=== PATIENT | male | born 1995 | race Caucasian/White ===

== ENCOUNTER 2018-03-30 07:22 | Observation (INO) ==
[2018-03-30] MEDS ORDERED: SODIUM CHLORIDE 0.9% 1000ML 1,000 ML IV ONE (07:37)
[2018-03-30] MEDS ORDERED: ONDANSETRON INJ 2 MG/ML 2 ML VIAL IV STA (07:37)
--- NOTE | 2018-03-30 07:41 | Emergency Department Note ---
History of Present Illness General Chief complaint: Abdominal Pain Stated complaint: MIDDLE RT LWR ABDOMINAL PAIN,NAUSEA Time Seen by Provider: 03/30/18 07:28 History of Present Illness Maximum Pain Intensity: 4 22-year-old male who presents to emergency department with complaint of central and upper abdominal pain since last evening around 8 PM. The patient reports that he recently flew back from [place]. The patient reports that his initial discomfort was in the center of the abdomen radiating to the epigastric region. The patient reports that he did not have a good appetite yesterday. The patient reports that he awakened practically every hour overnight. He took some Advil at 3 AM which did not alleviate his symptoms. The patient reports mild nausea without vomiting. He denies any pain radiating into the chest, neck , back or lower abdomen. The pain is not worsened with ambulation, movement or position. The patient denies any recent constipation or diarrhea. He also denies fevers, chills or other sick contacts. The patient denies any recent significant alcohol, NSAIDs or caffeine use. He currently rates his discomfort a 4 out of 10. Home Medications Home Medications Medication Instructions Recorded Confirmed Type No Known Home Medications 03/30/18 03/30/18 History Allergies Allergy/AdvReac Type Severity Reaction Status Date / Time No Known Allergies Allergy Unverified 03/30/18 07:54 Past Med/Surg History Social History Current Living Situation: Alone Other Information That Helps Us Care for You: No Feels Safe at Home: Yes Safety Concerns: Feels Safe At This Time Smoking Status: Former smoker Do You Dip or Chew Tobacco: No Hx Alcohol Use: Yes Alcohol Intake Frequency: other Hx Substance Use: No Beliefs That Will Affect Care: None Preferred Language: Wolof Communication Ability: Effective Fire Tower Keeper Required: No Review of Systems HEENT: Denies dizziness, visual problems, hearing loss, tinnitus. Denies difficulty swallowing or oral lesions. PULMONARY: Denies cough, shortness of breath, sputum production or hemoptysis. CARDIOVASCULAR: Denies chest pain, palpitations, dyspnea on exertion, orthopnea or peripheral edema. GASTROINTESTINAL: See HPI. GENITOURINARY: Denies dysuria, frequency, urgency or nocturia. NEUROLOGIC: Denies history of epilepsy, CVA, TIA or chronic headaches. MUSCULOSKELETAL: Denies history of joint tenderness/swelling. SKIN: Denies rashes or lesions. PSYCHIATRIC: Denies history of depression or mental illness. ENDOCRINE: Denies history of diabetes or thyroid disorders. Physical Exam Vital Signs Vital Signs - 24 hr 03/30/18 07:27 03/30/18 08:25 03/30/18 10:17 Temperature 36.8 C Temperature Source Oral Sepsis Recent Fever Within 48 Hours No Sepsis New/Unexplained Change in Mental Status No Sepsis Action Taken by Nursing No Action Required Pulse Rate 99 H Pulse Rate [Apical] Pulse Rate [Left Brachial] 76 83 Pulse Rhythm [Apical] Pulse Rhythm [Left Brachial] Pulse Strength [Left Brachial] Respiratory Rate 20 18 18 Respiratory Effort / Characteristics Non-Labored Spontaneous Non-Labored Spontaneous Respiratory Depth Normal Normal Respiratory Pattern Regular Regular Blood Pressure 140/78 Blood Pressure [Left Arm] 136/60 124/67 Blood Pressure Mean 98 Blood Pressure Mean [Left Arm] 85 86 Blood Pressure Position [Left Arm] Lying Lying Pulse Oximetry 100 100 100 Oxygen Delivery Method Room Air Room Air Room Air Oxygen Flow Rate 03/30/18 11:16 03/30/18 13:05 03/30/18 14:02 Temperature 36.8 C Temperature Source Oral Sepsis Recent Fever Within 48 Hours Sepsis New/Unexplained Change in Mental Status Sepsis Action Taken by Nursing Pulse Rate Pulse Rate [Apical] Pulse Rate [Left Brachial] 84 82 93 H Pulse Rhythm [Apical] Pulse Rhythm [Left Brachial] Regular Pulse Strength [Left Brachial] Normal Respiratory Rate 18 18 18 Respiratory Effort / Characteristics Non-Labored Spontaneous Non-Labored Spontaneous Non-Labored Respiratory Depth Normal Normal Normal Respiratory Pattern Regular Regular Blood Pressure Blood Pressure [Left Arm] 138/60 121/74 145/75 H Blood Pressure Mean Blood Pressure Mean [Left Arm] 86 89 98 Blood Pressure Position [Left Arm] Lying Lying Sitting Pulse Oximetry 99 99 98 Oxygen Delivery Method Room Air Room Air Room Air Oxygen Flow Rate 03/30/18 16:16 Temperature Temperature Source Sepsis Recent Fever Within 48 Hours Sepsis New/Unexplained Change in Mental Status Sepsis Action Taken by Nursing Pulse Rate Pulse Rate [Apical] 68 Pulse Rate [Left Brachial] Pulse Rhythm [Apical] Regular Pulse Rhythm [Left Brachial] Pulse Strength [Left Brachial] Respiratory Rate 12 Respiratory Effort / Characteristics Non-Labored Spontaneous Respiratory Depth Normal Respiratory Pattern Regular Blood Pressure Blood Pressure [Left Arm] 113/51 L Blood Pressure Mean Blood Pressure Mean [Left Arm] 71 Blood Pressure Position [Left Arm] Lying Pulse Oximetry 99 Oxygen Delivery Method Oxymask Oxygen Flow Rate 10 CONSTITUTIONAL: Healthy and well nourished. Alert and oriented X 3. Patient does not appear in any acute distress. HEENT: Normocephalic, atraumatic. Pupils equal, round and reactive. No scleral icterus or conjunctival injection. No rhinorrhea. Examination of the oropharynx does not show any posterior pharyngeal erythema or tonsillar hypertrophy/exudates. NECK: Full active range of motion without discomfort. LYMPHATICS: No adenopathy noted. RESPIRATORY: Clear to auscultation bilaterally with no wheezing, crackles, rhonchi or stridor. CARDIOVASCULAR: Regular rate and rhythm with no murmurs, rubs or gallops. GASTROINTESTINAL: Bowel sounds present in all quadrants. Examination shows mild epigastric tenderness to palpation. The patient has no lower abdominal tenderness to palpation. Negative Rovsing sign. Negative McBurney's point tenderness. Negative CVA tenderness. No abdominal rigidity, guarding or rebound. MUSCULOSKELETAL: Full range of motion of all joints without discomfort. INTEGUMENTARY: No rash or other significant dermatologic conditions noted. HEMATOLOGIC: No ecchymosis or petechia. NEUROLOGIC: Cranial nerves II-XII grossly intact. No focal neurologic deficits noted. PSYCHIATRIC: Positive affect. Course Patient history and physical exam were performed. Nurse's notes were reviewed. Vital signs were reviewed and were normal. IV access was established, and labs were drawn. The patient was hydrated with a liter of normal saline, and administered Zofran for nausea. He refused any analgesics. Labs were reviewed to show no significant abnormalities. Urinalysis was not consistent with infection. It is noted on initial evaluation that the patient did not have any clinical findings or suspicion for acute appendicitis. The patient reported that he still had mild generalized central abdominal pain, and now mild right lower quadrant pain. At this point, I elected to get a CT of the abdomen and pelvis which showed an acute appendicitis. The case was discussed with Dr. Nelson, ED attending physician, who recommended surgical consultation. The case was then discussed with Kurtis Batres PA-C, with Dr. Austin Muñiz, general surgeon. Please see their dictations for further surgical management. Administered Medications Ioversol (Optiray 320 125ml) 119 ml IV ONCE PRN PRN Reason: Interaction Checking Stop: 04/03/18 11:11 Last Admin: 03/30/18 11:12 Dose: 119 ml Discontinued Medications Bupivacaine HCl (Marcaine 0.5% Mpf) Confirm Administered Dose 30 ml .ROUTE .STK- MED ONE Stop: 03/30/18 14:58 Last Admin: 03/30/18 15:44 Dose: 30 ml Sodium Chloride (Nss 1000ml) 1,000 mls @ 999 mls/hr IV .Q1H1M ONE Stop: 03/30/18 08:37 Last Infusion: 03/30/18 08:56 Dose: 0 mls/hr Admin: 03/30/18 08:04 Dose: 999 mls/hr Ampicillin Sodium/Sulbactam Sodium 3,000 mg/ Sodium Chloride 108 mls @ 200 mls/ hr IV ONE ONE Stop: 03/30/18 13:47 Last Infusion: 03/30/18 14:20 Dose: 0 mls/hr Admin: 03/30/18 13:47 Dose: 200 mls/hr Ondansetron HCl (Zofran) 4 mg IV NOW STA Stop: 03/30/18 07:38 Last Admin: 03/30/18 08:04 Dose: 4 mg Medical Decision Making Medical Records Attestation: I reviewed the patient's medical records. Home Medications Current Medication List: was personally reviewed by me Laboratory Data Attestation: I reviewed the patient's lab results. Result diagrams: 03/30/18 07:45 03/30/18 07:45 Lab Results 03/30/18 03/30/18 03/30/18 Range/Units 07:40 07:45 07:45 WBC 9.37 (4.8-10.8) K/uL RBC 5.50 (4.7-6.1) M/uL Hgb 16.5 (14.0-18.0) g/dL Hct 47.2 (42-52) % MCV 85.8 (80-100) fL MCH 30.0 (25-34) pg MCHC 35.0 (32-36) g/dL RDW Std Deviation 38.6 (36.4-46.3) fL RDW Coeff of Trevor 12.3 (11.5-14.5) % Plt Count 241 (130-400) K/uL MPV 9.5 (7.4-10.4) fL Immature Gran % (Auto) 0.2 % Neut % (Auto) 70.0 % Lymph % (Auto) 19.7 % Collin % (Auto) 8.8 % Eos % (Auto) 1.1 % Baso % (Auto) 0.2 % Immature Gran # (Auto) 0.02 (0.00-0.02) K/uL Neut # (Auto) 6.56 H (1.4-6.5) K/uL Lymph # (Auto) 1.85 (1.2-3.4) K/uL Collin # (Auto) 0.82 H (0.11-0.59) K/uL Eos # (Auto) 0.10 (0-0.5) K/uL Baso # (Auto) 0.02 (0-0.2) K/uL Sodium 136 (136-145) mmol/L Potassium 3.2 L (3.5-5.1) mmol/L Chloride 102 (98-107) mmol/L Carbon Dioxide 28 (21-32) mmol/L Anion Gap 6.0 (3-11) BUN 15 (7-18) mg/dl Creatinine 1.00 (0.6-1.4) mg/dl Est Cr Clr Drug Dosing 117.7 ml/min Est GFR ( Amer) 125.0 Est GFR (Non-Af Amer) 107.9 BUN/Creatinine Ratio 15.1 (10-20) Glucose 85 (70-99) mg/dl Calcium 9.0 (8.5-10.1) mg/dl Total Bilirubin 1.3 H (0.2-1) mg/dl AST 20 (15-37) U/L ALT 19 (12-78) U/L Alkaline Phosphatase 93 (45-117) U/L Total Protein 9.2 H (6.4-8.2) gm/dl Albumin 4.9 (3.4-5.0) gm/dl Globulin 4.3 H (2.5-4.0) gm/dl Albumin/Globulin Ratio 1.1 (0.9-2) Lipase 107 (73-393) U/L Urine Color Dark Yellow Urine Appearance Clear (Clear) Urine pH 6.0 (4.5-7.5) Ur Specific [place] 1.036 H (1.000-1.030) Urine Protein 1+ H (Negative) Urine Glucose (UA) Negative (Negative) Urine Ketones Trace H (Negative) Urine Blood Negative (Negative) Urine Nitrite Negative (Negative) Urine Bilirubin Negative (Negative) Urine Urobilinogen Negative (Negative) Ur Leukocyte Esterase Negative (Negative) Urine WBC (Auto) 1-5 (0-5) /hpf Urine RBC (Auto) 0-4 (0-4) /hpf U Hyaline Cast (Auto) 1-5 (0-5) /lpf U Epithel Cells (Auto) 5-10 H (0-5) /lpf Urine Bacteria (Auto) Negative (Negative) Imaging Data Attestation: I personally reviewed and interpreted this imaging study as follows : My Impression: CT of the abdomen and pelvis with IV contrast shows evidence for an acute appendicitis. Radiologist report was reviewed. Radiologist's Impression: ABDOMEN AND PELVIS CT WITH IV CONTRAST CT DOSE: 348.77 mGycm HISTORY: Acute right lower quadrant abdominal pain RLQ abd pain TECHNIQUE: Multiaxial CT images of the abdomen and pelvis were performed following the use of intravenous contrast. A dose lowering technique was utilized adhering to the principles of ALARA. COMPARISON STUDY: None. FINDINGS: Lung bases are clear. No pneumatosis or pneumoperitoneum. The imaged inferior cardiac chambers appear unremarkable. Contracted gallbladder. Liver, spleen, pancreas and adrenal glands are unremarkable. Kidneys, ureters and urinary bladder are within normal limits. Mild to moderate volume of free fluid within the dependent pelvis. Aorta and IVC are unremarkable. No adenopathy. No bowel obstruction. Terminal ileum is unremarkable. Circumferential wall thickening of the appendix is noted measuring up to 3 mm with associated mucosal hyperemia. Appendix is fluid- filled and dilated measuring up to 11 mm transversely. Mild to moderate periappendiceal inflammatory stranding is noted without drainable fluid collection or evidence of perforation. No obstructing appendicolith identified. Soft tissues are within normal limits. Bones appear to be intact. Transitional lumbosacral anatomy with pseudoarticulation of the elongated L5 transverse processes with the sacral ala. IMPRESSION: 1. Findings compatible with acute uncomplicated appendicitis. No drainable fluid collection or evidence of perforation. 2. No bowel obstruction. 3. Mild to moderate reactive free pelvic fluid. 4. Transitional lumbosacral anatomy. Blood Pressure Blood Pressure Findings: Normal blood pressure MDM Narrative CT scan shows evidence for acute appendicitis. Workup at this point is not suggestive of bowel obstruction, pancreatitis, hepatitis, cholecystitis or UTI. I also do not suspect testicular etiologies. The patient has not had any recent GI symptoms. Impression & Plan Acute appendicitis Discharge Plan Visit Data Chief Complaint: Abdominal Pain Stated Complaint: MIDDLE RT LWR ABDOMINAL PAIN,NAUSEA ED Provider: Sb Nelson ED Midlevel Provider: Adolph Fitzpatrick Discharge Problem: Acute appendicitis Patient Disposition: Admitted As Inpatient Discharge Instructions Interventions: ED Discharge Assessment Last Done: 03/30/18 13:48 Forms Stand Alone Forms: [facility], Important Visit Information Prescriptions Prescriptions: No Action No Known Home Medications RF: 0 Referrals Referrals: PCP,NO [Primary Care Provider] -
[2018-03-30 07:58] LABS: Basophils # (auto) 0.02 K/uL (0-0.2); Basophils % (auto) 0.2 %; Eosinophils % (auto) 1.1 %; Hematocrit (blood only) 47.2 % (42-52); Hemoglobin 16.5 g/dL (14.0-18.0); Immature Granulocytes # (auto) 0.02 K/uL (0.00-0.02); Immature Granulocytes % (auto) 0.2 %; Lymphocytes # (auto) 1.85 K/uL (1.2-3.4); Lymphocytes % (auto) 19.7 %; Mean Corpuscular Volume 85.8 fL (80-100); Mean Platelet Volume 9.5 fL (7.4-10.4); Monocytes # (auto) 0.82 K/uL (0.11-0.59); Monocytes % (auto) 8.8 %; Neutrophils # (auto) 6.56 K/uL (1.4-6.5); Platelet Count 241 K/uL (130-400); RDW Coefficient of Variation 12.3 % (11.5-14.5); RDW Standard Deviation 38.6 fL (36.4-46.3); White Blood Count 9.37 K/uL (4.8-10.8)
[2018-03-30 08:14] LABS: Albumin Level 4.9 gm/dl (3.4-5.0); BUN Creatinine Ratio 15.1 (10-20); Creatinine Clr Calc Pharmacy 117.7 ml/min; Est GFR (Non-African American) 107.9; Potassium 3.2 mmol/L (3.5-5.1)
[2018-03-30 08:17] LABS: Albumin Globulin Ratio 1.1 (0.9-2); Bilirubin,Total 1.3 mg/dl (0.2-1); Globulin 4.3 gm/dl (2.5-4.0); Total Protein 9.2 gm/dl (6.4-8.2)
[2018-03-30 08:21] LABS: Appearance Urine Clear (Clear); Bacteria Urine Automated Negative (Negative); Bilirubin Urine Negative (Negative); Color Urine Dark Yellow; Glucose Urine UA Negative (Negative); Ketones Urine Trace (Negative); Leukocyte Esterase Urine Negative (Negative); Nitrite Urine Negative (Negative); Protein Urine 1+ (Negative); Specific Gravity Urine 1.036 (1.000-1.030); Urobilinogen Urine Negative (Negative)
[2018-03-30] MEDS ORDERED: OPTIRAY 320 125ml IV PRN (11:12)
--- NOTE | 2018-03-30 11:20 | CT Scan Report ---
ABDOMEN AND PELVIS CT WITH IV CONTRAST CT DOSE: 348.77 mGycm HISTORY: Acute right lower quadrant abdominal pain RLQ abd pain TECHNIQUE: Multiaxial CT images of the abdomen and pelvis were performed following the use of intrave nous contrast. A dose lowering technique was utilized adhering to the principles of ALARA. COMPARISON STUDY: None. FINDINGS: Lung bases are clear. No pneumatosis or pneumoperitoneum. The imaged inferior cardiac chambers appear unremarkable. Contracted gallbladder. Liver, spleen, pancreas and adrenal glands are unremarkable. Kidneys, ureters and urinary bladder are within normal limits. Mild to moderate volume of free fluid within the depen dent pelvis. Aorta and IVC are unremarkable. No adenopathy. No bowel obstruction. Terminal ileum is u nremarkable. Circumferential wall thickening of the appendix is noted measuring up to 3 mm with assoc iated mucosal hyperemia. Appendix is fluid-filled and dilated measuring up to 11 mm transversely. Mil d to moderate periappendiceal inflammatory stranding is noted without drainable fluid collection or e vidence of perforation. No obstructing appendicolith identified. Soft tissues are within normal limits. Bones appear to be intact. Transitional lumbosacral anatomy wi th pseudoarticulation of the elongated L5 transverse processes with the sacral ala. IMPRESSION: 1. Findings compatible with acute uncomplicated appendicitis. No drainable fluid collection or eviden ce of perforation. 2. No bowel obstruction. 3. Mild to moderate reactive free pelvic fluid. 4. Transitional lumbosacral anatomy. Electronically signed by: Noah Mckenzie M.D. 03/30/2018 11:18 AM
--- NOTE | 2018-03-30 13:07 | History & Physical Report ---
Date of Service March 30, 2018 Assessment & Plan (1) Acute appendicitis: Laparoscopic appendectomy this afternoon by Dr. Muñiz. Procedure and recovery were discussed with the patient. 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 Nausea, no vomiting. No fevers or chills. No previous surgery. Allergies Allergy/AdvReac Type Severity Reaction Status Date / Time No Known Allergies Allergy Unverified 03/30/18 07:54 Home Medications Home Medications Medication Instructions Recorded Confirmed Type No Known Home Medications 03/30/18 03/30/18 History Past Med/Surg History Social History Current Living Situation: Alone Other Information That Helps Us Care for You: No Feels Safe at Home: Yes Safety Concerns: Feels Safe At This Time Smoking Status: Former smoker Do You Dip or Chew Tobacco: No Second Hand Exposure: No Tobacco Cessation Education Requested by Patient: No Hx Alcohol Use: Yes Alcohol Intake Frequency: other Hx Substance Use: No Beliefs That Will Affect Care: None Preferred Language: Kyrgyz Communication Ability: Effective Secondary English Teacher Required: No Review of Systems Constitutional: no fever and no chills Respiratory: no cough Gastrointestinal: no nausea and no vomiting Physical Exam 2 Vital Signs (Past 24 Hours): Last Vital Signs Temp 36.8 C 03/30/18 07:27 Pulse 84 03/30/18 11:16 Resp 18 03/30/18 11:16 BP 138/60 03/30/18 11:16 Pulse Ox 99 03/30/18 11:16 Constitutional: WD/WN, vitals as above no acute distress Respiratory: normal respiratory effort, lungs clear to auscultation Cardiovascular: RRR, no murmur, no edema Gastrointestinal (Abdomen): Inspection/Auscultation: abdomen normal to inspection; abdomen not distended Percussion/Palpation: + abdomen tender ( mild RLQ) and abdomen soft Skin: no rashes, warm and dry Results & Data Diagnostic Findings ABDOMEN AND PELVIS CT WITH IV CONTRAST CT DOSE: 348.77 mGycm HISTORY: Acute right lower quadrant abdominal pain RLQ abd pain TECHNIQUE: Multiaxial CT images of the abdomen and pelvis were performed following the use of intravenous contrast. A dose lowering technique was utilized adhering to the principles of ALARA. COMPARISON STUDY: None. FINDINGS: Lung bases are clear. No pneumatosis or pneumoperitoneum. The imaged inferior cardiac chambers appear unremarkable. Contracted gallbladder. Liver, spleen, pancreas and adrenal glands are unremarkable. Kidneys, ureters and urinary bladder are within normal limits. Mild to moderate volume of free fluid within the dependent pelvis. Aorta and IVC are unremarkable. No adenopathy. No bowel obstruction. Terminal ileum is unremarkable. Circumferential wall thickening of the appendix is noted measuring up to 3 mm with associated mucosal hyperemia. Appendix is fluid- filled and dilated measuring up to 11 mm transversely. Mild to moderate periappendiceal inflammatory stranding is noted without drainable fluid collection or evidence of perforation. No obstructing appendicolith identified. Soft tissues are within normal limits. Bones appear to be intact. Transitional lumbosacral anatomy with pseudoarticulation of the elongated L5 transverse processes with the sacral ala. IMPRESSION: 1. Findings compatible with acute uncomplicated appendicitis. No drainable fluid collection or evidence of perforation. 2. No bowel obstruction. 3. Mild to moderate reactive free pelvic fluid. 4. Transitional lumbosacral anatomy. Electronically signed by: Noah Mckenzie M.D. 03/30/2018 11:18 AM _ (1) Acute appendicitis Acute appendicitis type: Appendicitis abscess presence: Appendicitis gangrene presence: Appendicitis perforation presence:
[2018-03-30] MEDS ORDERED: AMPICILLIN/SULBACTAM SOD 3,000 MG in 0.9 % SODIUM CHLORIDE 100 ML IV ONE (13:15)
[2018-03-30] MEDS ORDERED: BUPIVACAINE 0.5 % 5 MG/1 ML MPF 30ML VIAL ONE (14:57)
--- NOTE | 2018-03-30 15:00 | Anesthesiology Consultation ---
Date of Service March 30, 2018 Acute appendicitis Otherwise healthy Assessment & Plan (1) Encounter for pre-operative examination: Chart Review Chart Review: Acceptable Risk for Surgery and Patient NOT seen in Pre Admission Testing Consults Requested none ASA [id number] Proposed Anesthesia Anesthesia Type: General Risk / Benefits Reviewed With: PT / POA / Parent / Guardian, Accepts Plan and Informed Consent Obtained NPO Date Last Intake of Fluids: 03/30/18 Time Last Intake of Fluids: 07:00 Date Last Intake of Solids: 03/30/18 Time Last Intake of Solids: 06:00 History Surgery Operation Date: 03/30/18 08:20 Proposed Procedures p Laparoscopic Appendectomy - Austin Muñiz MD, FACS Height/Weight Height: 5 ft 10 in Weight: 70.6 kg Allergies Allergy/AdvReac Type Severity Reaction Status Date / Time No Known Allergies Allergy Unverified 03/30/18 07:54 Medications Home Medications Medication Instructions Recorded Confirmed Last Taken No Known Home Medications 03/30/18 03/30/18 Unknown Active Medications Generic Name Dose Route Start Last Admin Trade Name Freq PRN Reason Stop Dose Admin Ioversol 119 ml 03/30/18 11:12 03/30/18 11:12 Optiray 320 125ml IV 04/03/18 11:11 119 ml ONCE PRN Administration Interaction Checking Social History Smoking Status: Former smoker Do You Dip or Chew Tobacco: No Hx Alcohol Use: Yes alcohol intake frequency: other Alcohol Intake Frequency Comment: weekends Hx Substance Use: No Physical Exam Vital Signs Last Vital Signs Temp 36.8 C 03/30/18 14:02 Pulse 93 H 03/30/18 14:02 Resp 18 03/30/18 14:02 BP 145/75 H 03/30/18 14:02 Pulse Ox 98 03/30/18 14:02 ENMT Mouth: no dentition abnormality Thyromental Distance: > or= 3.5 Finger Breadths Mallampati Class: II Neck normal visual inspection; neck extension not limited Respiratory normal respiratory effort Auscultation: lungs clear to auscultation bilaterally Cardiovascular Rate/Rhythm: regular rate and regular rhythm Musculoskeletal Spine: normal cervical ROM Neurologic moves all extremities Psychiatric Orientation: alert and oriented x 3 Testing Laboratory Results 03/30/18 07:45 03/30/18 07:45 Urine Color Dark Yellow 03/30/18 07:40 Urine Appearance Clear (Clear) 03/30/18 07:40 Urine pH 6.0 (4.5-7.5) 03/30/18 07:40 Ur Specific [place] 1.036 (1.000-1.030) H 03/30/18 07:40 Urine Protein 1+ (Negative) H 03/30/18 07:40 Urine Glucose (UA) Negative (Negative) 03/30/18 07:40 Urine Ketones Trace (Negative) H 03/30/18 07:40 Urine Nitrite Negative (Negative) 03/30/18 07:40 Ur Leukocyte Esterase Negative (Negative) 03/30/18 07:40 Urine WBC (Auto) 1-5 /hpf (0-5) 03/30/18 07:40 Urine RBC (Auto) 0-4 /hpf (0-4) 03/30/18 07:40 U Hyaline Cast (Auto) 1-5 /lpf (0-5) 03/30/18 07:40 U Epithel Cells (Auto) 5-10 /lpf (0-5) H 03/30/18 07:40 Urine Bacteria (Auto) Negative (Negative) 03/30/18 07:40
[2018-03-30] MEDS ORDERED: ePHEDrine sulfate 50 MG/ML AMP IV PRN (15:02)
[2018-03-30] MEDS ORDERED: ATROPINE SULFATE 0.1 MG/ML 10ML SYR IV PRN (15:02)
[2018-03-30] MEDS ORDERED: fentaNYL citrate 100 MCG/2 ML VIAL IV PRN (15:02)
[2018-03-30] MEDS ORDERED: ONDANSETRON INJ 2 MG/ML 2 ML VIAL IV PRN ×2 (15:02→17:06)
[2018-03-30] MEDS ORDERED: KETOROLAC 30 MG/ML VIAL ONE (15:04)
[2018-03-30] MEDS ORDERED: ONDANSETRON INJ 2 MG/ML 2 ML VIAL ONE (15:04)
[2018-03-30] MEDS ORDERED: ePHEDrine sulfate 50 MG/ML SYR ONE (15:04)
[2018-03-30] MEDS ORDERED: PHENYLEPHRINE 100MCG/ML 5ML SYR ONE (15:04)
[2018-03-30] MEDS ORDERED: PROPOFOL IV EMULSION 10 MG/ML 20 ML VIAL IV ONE (15:04)
[2018-03-30] MEDS ORDERED: GLYCOPYRROLATE 0.2 MG/ML VIAL ONE (15:04)
[2018-03-30] MEDS ORDERED: NEOSTIGMINE METHYLSULFATE 5 MG/5 ML SYR ONE (15:04)
[2018-03-30] MEDS ORDERED: ROCURONIUM BROMIDE 10 MG/ML 5 ML VIAL ONE (15:04)
[2018-03-30] MEDS ORDERED: LIDOCAINE HCL 2% 2 ML VIAL/AMP(20MG/ML) INFIL ONE (15:04)
[2018-03-30] MEDS ORDERED: fentaNYL citrate 100 MCG/2 ML VIAL ONE ×2 (15:04→15:05)
[2018-03-30] MEDS ORDERED: LARYING-O-JET KIT (LTA) ONE (15:04)
[2018-03-30] MEDS ORDERED: DEXAMETHASONE SOD INJ 4 MG/ML VIAL ONE (15:04)
[2018-03-30] MEDS ORDERED: MIDAZOLAM HCL 1 MG/ML 2ML VIAL ONE (15:05)
--- NOTE | 2018-03-30 16:05 | Operative Report ---
Post Operative Report Pre & Post Diagnosis Operation Date: 03/30/18 08:20 Pre-Op Diagnosis: acute appendicitis Post-Op Diagnosis: acute appendicitis same Procedure Operation Date: 03/30/18 08:20 Actual Procedures p Laparoscopic Appendectomy(Not Applicable) - Austin Muñiz MD, FACS same Surgeon Austin Muñiz MD, FACS Agricultural Technician nurses Estimated Blood Loss 5 Findings Consistent with Post-Op Diagnosis Specimens appendix Description of Procedure laparoscopic appendectomy I attest to the content of the Intraoperative Record and any orders documented therein. Any exceptions are noted below.
--- NOTE | 2018-03-30 16:42 | Anesthesiology Progress Note ---
Date of Service March 30, 2018 Anesthesia Post Procedure Vital Signs Vital Signs: Temp Pulse Pulse Pulse Resp BP BP 03/30/18 16:35 88 14 129/60 03/30/18 16:25 89 16 115/58 L 03/30/18 16:16 68 12 113/51 L 03/30/18 14:02 36.8 C 93 H 18 145/75 H 03/30/18 13:05 82 18 121/74 03/30/18 11:16 84 18 138/60 03/30/18 10:17 83 18 124/67 03/30/18 08:25 76 18 136/60 03/30/18 07:27 36.8 C 99 H 20 140/78 Pulse Ox 03/30/18 16:35 100 03/30/18 16:25 100 03/30/18 16:16 99 03/30/18 14:02 98 03/30/18 13:05 99 03/30/18 11:16 99 03/30/18 10:17 100 03/30/18 08:25 100 03/30/18 07:27 100 Pain Intensity Right Abdomen: Pain Intensity: 4 Abdomen: Pain Intensity: 2 Notes Mental Status: alert / awake / arousable Patient Amnestic to Procedure: Yes Nausea / Vomiting: adequately controlled Pain: adequately controlled Airway Patency, RR, SpO2: stable & adequate BP & HR: stable & adequate Hydration State: stable & adequate Anesthetic Complications: no major complications apparent
[2018-03-30] MEDS ORDERED: MoRPHine SULFATE 2 MG/ML CARP IV PRN (17:06)
[2018-03-30] MEDS ORDERED: HYDROCODONE/ACETAMOPHEN 5/325MG TAB PO PRN ×2 (17:06)
[2018-03-30] MEDS ORDERED: IBUPROFEN 600 MG TAB PO PRN (17:06)
[2018-03-30] MEDS ORDERED: PROMETHAZINE HCL 12.5 MG in SODIUM CHLORIDE 0.9% 50 ML IV PRN (17:06)
[2018-03-30] MEDS ORDERED: MoRPHine SULFATE 4 MG/ML 1 ML CARP\\VIAL IV PRN (17:06)
[2018-03-30] MEDS: AMPICILLIN/SULBACTAM SOD 1,500 MG in 0.9 % SODIUM CHLORIDE 100 ML IV SCH (20:31)
[2018-03-30] MEDS: SODIUM CHLORIDE 0.9% 1000ML 1,000 ML IV SCH (20:31)
--- NOTE | 2018-03-30 20:35 | Operative Report ---
DATE OF OPERATION: 03/30/2018 NAME OF OPERATION: Laparoscopic appendectomy. PREOPERATIVE DIAGNOSIS: Acute appendicitis. POSTOPERATIVE DIAGNOSIS: Acute appendicitis. STAFF SURGEON: Austin Muñiz MD ANESTHESIA: General. DESCRIPTION OF PROCEDURE: The patient was brought in the Operating Room and placed on the Operating Room table in supine position. Pneumatic stockings and orogastric tube were placed. Incision was made just above the umbilicus, carrying dissection down, placing a Veress needle producing pneumoperitoneum, placing a 5 mm port under visualization using a 5 mm camera, a second 5 mm port was placed suprapubically and then a 12 mm port in the left lower quadrant. At this point, the cecum was reflected. The appendix was identified. The base of the appendix was dissected free and then the base transected using a brown load of Endo-LEODAN stapler. Two additional firings were performed to take the mesoappendix. The appendix was placed in an Endobag. The Endobag was removed through the left lower quadrant site. After appropriate irrigation and hemostasis, all ports were removed. The fascia in the left lower quadrant was closed using 0 Vicryl suture. The skin was reapproximated at that level using subcuticular 4-0 Monocryl and the other sites. The Dermabond was used at the umbilicus and suprapubic area and then Steri-Strips in the left lower quadrant. The patient was transferred to Recovery Room in a stable condition. I attest to the content of the Intraoperative Record and any orders documented therein. Any exception s are noted below.
[2018-03-31] MEDS: AMPICILLIN/SULBACTAM SOD 1,500 MG in 0.9 % SODIUM CHLORIDE 100 ML IV SCH ×2 (01:25→10:16)
--- NOTE | 2018-03-31 08:00 | XRay Report ---
TWO VIEW CHEST CLINICAL HISTORY: Right-sided chest wall pain. FINDINGS: PA and lateral chest radiographs are obtained. No prior studies are available for compariso n at the time of dictation. The cardiomediastinal silhouette is unremarkable. The lungs and pleural spaces are clear. There is no pneumothorax. The bony thorax appears intact. IMPRESSION: No active disease in the chest. Electronically signed by: Clemente Nelson M.D. 03/31/2018 7:59 AM
--- NOTE | 2018-03-31 09:04 | Discharge Summary ---
DATE OF DISCHARGE: 03/31/18 PRINCIPAL DIAGNOSIS: Acute appendicitis. HISTORY OF PRESENT ILLNESS: The patient is a 22-year-old male presenting to the Emergency Room with persistent abdominal pain, found on CAT scan with acute appendicitis. HOSPITAL COURSE: The patient was taken to the operating room on 03/30/2018 where he underwent laparoscopic appendectomy, which he tolerated well. He has done quite well without taking any pain medication and is ready for discharge home today. He says he has been having recent pain in the right rib area with no significant shortness of breath or pleuritic chest pain. We will check a chest x-ray prior to discharge. I do feel he is ready for discharge home for followup at the [facility] and my office.
--- NOTE | 2018-03-31 13:33 | Anesthesiology Progress Note ---
Date of Service March 31, 2018 Anesthesia Post Procedure Vital Signs Vital Signs: Temp Pulse Pulse Pulse Resp BP Pulse Ox 03/31/18 11:49 36.7 C 72 16 125/71 97 03/31/18 07:05 36.7 C 72 16 125/71 97 03/31/18 03:48 36.9 C 94 H 16 116/63 96 03/30/18 22:58 37.0 C 86 17 120/63 96 03/30/18 18:10 36.9 C 92 H 16 132/70 03/30/18 17:38 36.7 C 90 19 114/67 97 03/30/18 17:05 36.6 C 79 16 130/71 97 03/30/18 16:45 36.9 C 64 16 119/63 96 03/30/18 16:35 88 14 129/60 100 03/30/18 16:25 89 16 115/58 L 100 03/30/18 16:16 68 12 113/51 L 99 03/30/18 14:02 36.8 C 93 H 18 145/75 H 98 Pain Intensity Right Abdomen: Pain Intensity: 4 Abdomen: Pain Intensity: 5 Notes Mental Status: alert / awake / arousable and participated in evaluation Patient Amnestic to Procedure: Yes Nausea / Vomiting: see Notes below Pain: adequately controlled Airway Patency, RR, SpO2: stable & adequate BP & HR: stable & adequate Hydration State: stable & adequate Anesthetic Complications: no major complications apparent and Pt Satisfied with anesthetic care
== END 2018-03-31 12:00 | disposition home or self-care (01) ==
LOC: 3N 07:22 → ED 07:22 → 3N 13:48
DX: K35.80 Unspecified acute appendicitis